=== PATIENT | female | born 1990 | race Caucasian/White ===

== ENCOUNTER 2017-05-28 13:17 | Emergency (ER) | payer BC, MEDICAID ==
--- NOTE | 2017-05-28 15:25 | XRAY Report ---
EXAM: RIGHT KNEE RADIOGRAPHY EXAM DATE: 05/28/2017 03:12 PM. CLINICAL HISTORY: Right knee pain and swelling. COMPARISON: None. TECHNIQUE: 3 views. FINDINGS: Bones: No fracture or focal bony lesion. Joints: No evidence of dislocation. There is a small suprapatellar joint effusion. Soft Tissues: No unexpected soft tissue findings. IMPRESSION: No evidence of fracture or dislocation. [facility] Referring Provider Line: [phone] SITE ID: [id number]
[2017-05-28] MEDS ORDERED: LIDOCAINE 1%-EPI 1:100000 20 ML MDV ONE (15:37)
--- NOTE | 2017-05-28 16:05 | ED Physician Documentation ---
PD HPI LOWER EXT INJURY - Stated complaint Stated Complaint: KNEE PX - Chief complaint Chief Complaint: Ext Problem - History obtained from History obtained from: Patient - History of Present Illness PD HPI LOW EXT INJURY LOCATION: Right, Knee Type of injury: Other (No known injury.) Timing - onset: How many weeks ago (1) Timing - details: Still present Worsened by: Moving Associated symptoms: Swelling Similar symptoms before: Has not had sx before - Additional information Additional information: The patient is a 26-year-old female who presents with pain and swelling in her right knee. The pain started about one week ago, and the swelling has become more noticeable today. She denies any specific injury, but does participate in [employer]. She has a history of MRSA infection involving her right groin, and is concerned about infection in her knee. She denies fever. She denies history of similar symptoms in the past. Review of Systems Constitutional: denies: Fever Nose: denies: Congestion Throat: denies: Sore throat Respiratory: denies: Dyspnea, Cough GI: denies: Abdominal Pain, Nausea, Vomiting : denies: Discharge, Vaginal bleeding Skin: denies: Rash Musculoskeletal: reports: Joint pain (Right knee.), Joint swelling (Right knee.) . denies: Back pain Neurologic: denies: Focal weakness, Numbness, Headache PD PAST MEDICAL HISTORY - Past Medical History Past Medical History: No Respiratory: None Endocrine/Autoimmune: None Derm: Other (History of MRSA infection right groin, treated about one month ago. ) - Past Surgical History Past Surgical History: No - Present Medications Home Medications: Ambulatory Orders Medication Instructions Recorded Confirmed Naproxen [Naprosyn] 500 mg PO BID PRN #20 tablet 05/28/17 - Allergies Allergies/Adverse Reactions: Allergies Allergy/AdvReac Type Severity Reaction Status Date / Time No Known Drug Allergies Allergy Verified 05/28/17 13:28 - Social History Does the pt smoke?: No Smoking Status: Never smoker Does the pt drink ETOH?: Yes ETOH Use: Beer, Liquor Does the pt have substance abuse?: No - Immunizations Immunizations are current?: Yes - POLST Patient has POLST: No PD ED PE NORMAL - Vitals Vital signs reviewed: Yes (normal) - General General: Alert and oriented X 3, Well developed/nourished - HEENT HEENT: Atraumatic, Pharynx benign - Neck Neck: No adenopathy - Cardiac Cardiac: RRR, No murmur - Respiratory Respiratory: No respiratory distress, Clear bilaterally - Abdomen Abdomen: Soft, Non tender - Back Back: No CVA TTP, No spinal TTP - Derm Derm: No rash - Extremities Extremities: No edema, No calf tenderness / cord, Other (There is an effusion of the right knee, with slight warmth to palpation. There is no erythema. She has full range of motion of the knee, with mild discomfort on flexion. There is no ligamentous instability detected. Distal neurovascular is intact.) - Neuro Neuro: Alert and oriented X 3, No motor deficit, No sensory deficit Results - Vitals Vitals: Vital Signs - 24 hr 05/28/17 05/28/17 13:24 17:55 Temperature 37.8 C H 37.5 C Heart Rate 88 86 Respiratory 16 20 Rate Blood Pressure 119/76 116/74 O2 Saturation 100 99 Oxygen O2 Source Room air - Labs Labs: Microbiology 05/28/17 15:53 Body Fluid Culture - Preliminary Synovial Fluid Laboratory Tests 05/28/17 05/28/17 16:21 16:53 Fluid Source SYNOVIAL Fluid Color STRAW Fluid Clarity CLOUDY Fluid WBC Fluid RBC Fluid Neutrophils % 91.0 Fluid Lymphocytes % 9.0 Fld Mesothelial Cell % Not Reportable Fluid Crystals NONE SEEN - Rads (name of study) Right knee Radiology: Prelim report reviewed, EMP read contemporaneously, See rad report ( Small suprapatellar joint effusion. No evidence of fracture or dislocation.) Procedures - Arthrocentesis Joint: Knee Preparation: Consent obtained (verbal), Sterile prep and drape Anesthesia: Lidocaine 1% Fluid: Sent for cell count, Cloudy (slightly), Sent for crystals, Sent for culture, Fluid obtained - cc (8), Sent for glucose, Sent for gram stain, Sent for protein Aftercare: Dressing applied, No complications, Patient tolerated well PD MEDICAL DECISION MAKING - ED course Complexity details: reviewed results, re-evaluated patient, considered differential, d/w patient, d/w technology consultant ED course: The patient's presentation is significant for small effusion of the right knee. The underlying cause of the effusion is uncertain at this time. While it may be a traumatic effusion related to rockclimbing, the possibility of septic arthritis is considered. Arthrocentesis was performed, and culture and sensitivity are pending. Cell count was not able to be reported by the lab, because of clotting of the synovial fluid. X-ray of the knee reveals no radiographic abnormality. I discussed her presentation with Dr. Johnson, orthopedic surgeon brand communications manager, and he advises urgent follow-up, with treatment based on culture results, without necessarily starting empiric antibiotic treatment. Naprosyn, 500 mg, was administered orally. She is being discharged with prescription for Naprosyn. I discussed with her and her male title insurance agent the diagnosis, importance of urgent follow-up, as well as potentially worrisome signs or symptoms that should prompt reevaluation in the emergency department. Departure - Departure Disposition: Home, Self Care Clinical Impression: Knee effusion, right Condition: Stable Instructions: ED Effusion Knee Follow-Up: Emely Colbert PA [Primary Care Provider] - Everette Eisenberg MD [Provider Admit Priv/Credential] - Prescriptions: Naproxen [Naprosyn] 500 mg PO BID PRN #20 tablet PRN Reason: Pain Comments: You can take Naprosyn twice daily as prescribed if needed for knee pain. Follow up with your primary physician within 1 week. Call to schedule an appointment. Return to the emergency department if you develop increasing swelling, increasing pain, redness of the knee, or otherwise worsening symptoms. Discharge Date/Time: 05/28/17 17:55
[2017-05-28 16:58] LABS: BF COLOR STRAW; BF SOURCE SYNOVIAL
[2017-05-28] MEDS ORDERED: NAPROXEN 250 MG TABLET PO STA (17:47)
[2017-05-28 17:56] VITALS: BP 116/74
== END 2017-05-28 17:55 | disposition home or self-care (01) ==
LOC: ED 13:17
DX: M25.461 Effusion, right knee (principal); Z86.14 Personal history of Methicillin resistant Staphylococcus aureus infection
CPT/HCPCS: 20610; 73562; 81599; 87070; 87205; 89051; 89060; 99283; 99284; A9270; 82945; 84157

== ENCOUNTER 2023-05-31 | Outpatient (CLI) | payer MEDICAID | END 2023-05-31 00:01 | disposition critical access hospital (66) | LOC: EMS | DX: R10.13 Epigastric pain (principal); R10.816 Epigastric abdominal tenderness; R06.4 Hyperventilation | CPT/HCPCS: A0425; A0429; A0999 ==

== ENCOUNTER 2023-05-31 00:27 | Emergency (ER) | payer MEDICAID ==
--- NOTE | 2023-05-31 01:25 | ED Physician Documentation ---
History of Present Illness - Stated complaint Stated Complaint: ABD PX - Chief complaint Chief Complaint: Abd Pain - History obtained from History obtained from: Patient - Additonal information Additional information: The pt comes to the ED with CC of crampy upper abdominal pain that has come and gone for the past couple of months, and a sore throat and feeling of fever and chills (no fever measured at home) for the past few days. The pt denies any particular trigger for the abdominal pain that she can identify. It is not related to eating fatty foods. No nausea or vomiting. Pain is short-lived, and does not occur every day. At worst, moderate. No rhinorrhea or cough. No diarrhea. No constipation. The pt states the real reason she was brought by ambulance was that she had a panic attack at home when the most recent bout of abdominal pain occurred. She was hyperventilating and began to have tingling in her hands and feet. The pt states the medics calmed her down, and she is fee ling much better now. No chest pain. No SOB. PD PAST MEDICAL HISTORY - Past Medical History Respiratory: None Endocrine/Autoimmune: None Derm: Other - Past Surgical History Past Surgical History: No - Present Medications Home Medications: Ambulatory Orders Medication Instructions Recorded Confirmed No Known Home Medications 05/31/23 05/31/23 - Allergies Allergies/Adverse Reactions: Allergies Allergy/AdvReac Type Severity Reaction Status Date / Time No Known Drug Allergies Allergy Verified 05/31/23 00:42 - Social History Does the pt smoke?: No Smoking Status: Never smoker Does the pt drink ETOH?: Yes Does the pt have substance abuse?: No - Immunizations Immunizations are current?: Yes - POLST Patient has POLST: No PD ED PE NORMAL - Vitals Vital signs reviewed: Yes - General General: Alert and oriented X 3, No acute distress, Well developed/nourished - HEENT HEENT: Atraumatic, PERRL, EOMI, Moist mucous membranes, Pharynx benign - Neck Neck: Supple, no meningeal sign - Cardiac Cardiac: RRR, No murmur - Respiratory Respiratory: No respiratory distress, Clear bilaterally - Abdomen Abdomen: Soft, Non tender, Non distended - Derm Derm: Normal color, Warm and dry, No rash - Extremities Extremities: No deformity - Neuro Neuro: Alert and oriented X 3, Other (Grossly intact) - Psych Psych: Normal mood, Normal affect Results - Vitals Vitals: Oxygen O2 Source Room air PD Medical Decision Making - ED course Complexity details: considered differential, d/w patient ED course: The pt reported episodic abdominal pain x 3 months with no real triggers, and had a benign abdominal exam in the ED. She was asymptomatic with regard to everything she'd reported at the time of evaluation, except a mild sore throat. Throat exam was normal. I offered a respiratory PCR panel, but pt declined, stating that she did not feel she needed testing for anything. I d/w her that if she continues to have the upper abdominal pain episodes, a scope and upper abd US may be helpful. We have discussed the usual indications for return, and the need for follow-up. Departure - Departure Disposition: 01 Home, Self Care Clinical Impression: Acute viral syndrome Abdominal pain Qualifiers: Abdominal location: upper abdomen, unspecified Qualified Code(s): R10.10 - Upper abdominal pain, unspecified Condition: Stable Instructions: ED Abdominal Pain Female Non-Specific Abdominal Pain, ED Viral Syndrome Comments: You reported a fever at home, though you did not have a fever here in the emergency department by the time you arrived. Given this and your sore throat and aches, it is most likely that you have one of the many viruses that are going around. You have been offered a viral panel here in the emergency department but would prefer not to do this at this time. As far as your abdominal pain, I do not think this is related to the fever, as the pain has been going on for a couple of months now. There are a number of possibilities for upper abdominal pain that comes and goes and feels like a cramp, and if this continues to get worse in any way, then more testing may be needed. At this point in time, you are stable for discharge. If you continue to have fevers and aches, you may take ibuprofen 600 mg every 6 hours and Tylenol/acetaminophen 650 mg every 4 hours, as needed. Please follow-up with your primary doctor as needed. Forms: PCP List Discharge Date/Time: 05/31/23 02:04
[2023-05-31 01:50] VITALS: BP 134/93; O2SAT 100
== END 2023-05-31 02:04 | disposition home or self-care (01) ==
LOC: EDUNIT# → ED 00:27
DX: F41.0 Panic disorder [episodic paroxysmal anxiety] (principal); B34.9 Viral infection, unspecified; R10.10 Upper abdominal pain, unspecified
CPT/HCPCS: 36415; 80053; 83690; 85025; 99283

== ENCOUNTER 2023-12-18 08:00 | Outpatient (CLI) | payer MEDICAID | END 2023-12-18 23:59 | disposition home or self-care (01) | LOC: LAB.S 08:00 | PROVIDERS: ATTEND Physician Assistant Medical | DX: R10.2 Pelvic and perineal pain (principal); N89.8 Other specified noninflammatory disorders of vagina; R39.89 Other symptoms and signs involving the genitourinary system | CPT/HCPCS: 81514; 87070; 87077; 87086; 87491; 87591; 87661 ==

== ENCOUNTER 2023-12-29 14:32 | Outpatient (CLI) | payer MEDICAID ==
[2023-12-29 20:08] LABS: BASOPHILS # (AUTO) 0.1 10^3/uL (0.0-0.1); BASOPHILS % (AUTO) 0.8 %; EOSINOPHILS # (AUTO) 0.3 10^3/uL (0.0-0.7); EOSINOPHILS % (AUTO) 3.4 %; HCT - HEMATOCRIT 40.1 % (37.0-47.0); HGB - HEMOGLOBIN 13.2 g/dL (12.0-16.0); LYMPHOCYTES # (AUTO) 2.2 10^3/uL (1.5-3.5); LYMPHOCYTES % (AUTO) 28.3 %; MEAN CORPUSCULAR HEMOGLOBIN 29.5 pg (27.0-31.0); MEAN CORPUSCULAR HGB CONC 32.9 g/dL (32.0-36.0); MEAN CORPUSCULAR VOLUME 89.5 fL (81.0-99.0); MEAN PLATELET VOLUME 9.1 fL (7.9-10.8); MONOCYTES # (AUTO) 0.4 10^3/uL (0.0-1.0); MONOCYTES % (AUTO) 5.2 %; NEUTROPHILS # (AUTO) 4.8 10^3/uL (1.5-6.6); NEUTROPHILS % (AUTO) 62.2 %; PLT - PLATELET COUNT 398 10^3/uL (130-450); RED BLOOD COUNT 4.48 10^6/uL (4.20-5.40); RED CELL DISTRIBUTION WIDTH 12.5 % (12.0-15.0); WHITE BLOOD COUNT 7.7 x10^3/uL (4.8-10.8)
[2023-12-29 20:22] LABS: ALBUMIN 4.2 g/dL (3.2-5.5); ALBUMIN/GLOBULIN RATIO 1.7 (1.0-2.2); BILIRUBIN,TOTAL 0.5 mg/dL (0.2-1.0); CALCIUM 9.5 mg/dL (8.5-10.3); CREATININE 0.7 mg/dL (0.6-1.3); POTASSIUM 4.4 mmol/L (3.5-4.5); TOTAL PROTEIN 6.7 g/dL (6.4-8.9)
[2023-12-29 20:39] LABS: THYROID STIMULATING HORMONE 0.11 uIU/mL (0.34-5.60)
== END 2023-12-29 14:33 | disposition home or self-care (01) ==
LOC: LAB.S 14:32
PROVIDERS: ATTEND Physician Assistant Medical
DX: R10.9 Unspecified abdominal pain (principal); R53.81 Other malaise; R53.83 Other fatigue; F41.0 Panic disorder [episodic paroxysmal anxiety]; R10.2 Pelvic and perineal pain
CPT/HCPCS: 36415; 80053; 84439; 84443; 85025